=== PATIENT | female | born 1985 | race Two or more races ===

== ENCOUNTER 2017-09-05 21:48 | Inpatient (IN) | payer OTHER ==
[~2017-09-05] VITALS: Ht 152.4 cm; Wt 83.9 kg
[~2017-09-05 21:48] MED LIST: PRENATAL MULTI1 EAC3
[2017-09-05] MEDS ORDERED: PROCARDIA PO (23:06)
== END 2017-09-09 18:49 | disposition home or self-care (01) | DRG 780 ==
LOC: LDR 21:48
PROC: 4A1HXCZ Monitoring of Products of Conception, Cardiac Rate, External Approach (ICD-10-PCS; principal; 2017-09-05)
DX: O47.1 False labor at or after 37 completed weeks of gestation (principal); Z3A.37 37 weeks gestation of pregnancy

== ENCOUNTER 2017-09-13 01:12 | Inpatient (IN) | payer OTHER ==
[~2017-09-13] VITALS: Ht 152.4 cm; Wt 186.0 kg
[~2017-09-13 01:12] MED LIST changes: +PROCARDIA PO
[2017-09-13] MEDS ORDERED: NIFE60TA3 PO (08:03)
== END 2017-09-15 16:56 | DRG 775 ==
LOC: LDR 01:12 → OB/GYN 04:35
PROC: 10E0XZZ Delivery of Products of Conception, External Approach (ICD-10-PCS; principal; 2017-09-13)
PROC: 4A1HXCZ Monitoring of Products of Conception, Cardiac Rate, External Approach (ICD-10-PCS; 2017-09-13)
PROC: 10907ZC Drainage of Amniotic Fluid, Therapeutic from Products of Conception, Via Natural or Artificial Opening (ICD-10-PCS; 2017-09-13)
DX: O80 Encounter for full-term uncomplicated delivery (principal); Z37.0 Single live birth; Z3A.38 38 weeks gestation of pregnancy